=== PATIENT | female | born 2000 | race Caucasian/White ===

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

== ENCOUNTER 2022-04-05 09:03 | Emergency (ER) | payer OTHER ==
[2022-04-05] MEDS ORDERED: Ondansetron 4 MG/2 ML SDV IVPUSH ONE (09:19)
[2022-04-05] MEDS ORDERED: Sodium Chloride 0.9% 1,000 ML IV ONE (09:19)
[2022-04-05] MEDS ORDERED: Ketorolac 30 MG/ML SDV IVPUSH ONE (09:19)
[2022-04-05] MEDS ORDERED: Ondansetron 4 MG/2 ML SDV ONE (09:27)
[2022-04-05] MEDS ORDERED: Ketorolac 30 MG/ML SDV ONE ×2 (09:29→10:04)
[2022-04-05 09:51] LABS: ESTIMATED GFR 107 mL/min (>60)
[2022-04-05] MEDS ORDERED: Ondansetron 4 MG Tab.DIS ONE (10:04)
[2022-04-05] MEDS ORDERED: Ondansetron 4 MG Tab.DIS PO ONE (10:29)
[2022-04-05] MEDS ORDERED: Metoclopramide 10 MG/2 ML SDV IVPUSH ONE (12:19)
[2022-04-05] MEDS ORDERED: Morphine 4 MG/ML VIAL IVPUSH ONE (12:19)
[2022-04-05] MEDS ORDERED: Ketorolac 30 MG/ML SDV IM ONE (17:50)
== END 2022-04-05 13:09 | disposition home or self-care (01) ==
LOC: FB.ED 09:03
DX: N20.1 Calculus of ureter (principal); N39.0 Urinary tract infection, site not specified; Z79.899 Other long term (current) drug therapy
CPT/HCPCS: 36415; 74176; 80053; 81001; 81025; 85025; 86140; 87086; 96361; 96374; 96375; 99284; J1885; J2270; J2765; J7030; Q0162